=== PATIENT | female | born 1955 | race Caucasian/White ===

== ENCOUNTER → 2018-03-09 | Outpatient (CLI) | payer OTHER ==
[~2018-03-09] MED LIST: ADULT LOW DOSE81 MG PO; AMBIEN 10 MG TA10 MG PO; BACTRIM DS TAB1 EACH PO; BUPROPION HCL150 MG PO; CALCIUM 600 +1 EAC1 PO; CARISOPRODOL 3350 MG PO; CEFTIN 250 MG250 MG PO; CELEBREX 200 M200 MG PO; CIPRO500 MG PO; CLARITIN10 MG PO; CLEOCIN HCL150 MG PO; CUBICIN500 MG IV; CYCLOBENZAPRINE10 MG PO; CYMBALTA60 MG PO; DEPAKOTE 250MG250 M1 PO; DEPAKOTE ER500 MG PO; FISH OIL 1,001000 M2 PO; FISH OIL SOFTG1 EACH PO; GABAPENTIN600 M1 PO; HYDROCODONE-AP1 EAC6 PO; HYDROCODONE-AP1 EACH PO; IBUPROFEN 800800 M1 PO; LEVOTHYROXIN0.088 MG PO; MINOCYCLINE HC100 M2 PO; MIRALAX255 GM PO; MOBIC15 MG PO; MOBIC7.5 MG PO; MUCINEX D TABL1 EAC1 PO; MULTIVITAMINS PO; MUPIROCIN22 GM; OMEPRAZOLE20 M2 PO; ONE DAILY ENER1 EACH PO; ONE DAILY PLUS1 EAC1 PO; OXYBUTYNIN 5 MG5 M2 PO; PERCOCET 10-321 EAC1 PO; POTASSIUM GLUC500 MG PO; PREDNISONE50 MG PO; PRILOSEC 20 MG20 MG PO; SYNTHROID; TRIAMCINOLONE A15 G1; VENTOLIN HFA INH8 GM IH; WELLBUTRIN SR150 MG PO; XANAX 0.5 MG0.5 MG PO; XANAX PO; ZPAK PO; ZYVOX600 MG PO; oxybutynin PO
[2018-03-09 12:38] LABS: ABSOLUTE BASOPHILS 0.1 thou/uL (0.0-0.2); ABSOLUTE EOSINOPHILS 0.3 thou/uL (0.0-0.7); ABSOLUTE MONOCYTES 0.5 thou/uL (0.0-1.2); ABSOLUTE NEUTROPHILS 4.3 thou/uL (1.6-8.1); BASOPHILS 1.4 %; EOSINOPHILS 3.5 %; HEMATOCRIT 40.1 % (37.0-47.0); HEMOGLOBIN 13.5 gm/dL (12.0-15.0); LYMPHOCYTES 27.5 %; MCH 28.3 pg (26.0-34.0); MCHC 33.8 g/dL (28.0-37.0); MCV 83.9 fL (80.0-100.0); MONOCYTES 7.4 %; MPV 8.2 fl. (7.2-11.1); NUCLEATED RBCS 0 /100WBC; PLATELET COUNT* 336 thou/uL (150-400); POLYS 60.2 %; RBC 4.78 mil/uL (4.20-5.00); RDW-CV 14.7 % (10.5-14.5); WBC 7.2 thou/uL (4.0-11.0)
[2018-03-09 12:50] LABS: ALBUMIN 3.7 g/dL (3.4-5.0); ALKALINE PHOSPHATASE 55 U/L (46-116); ANION GAP 5 mmol/L (7-16); BUN 15 mg/dL (7-18); CALCIUM 9.3 mg/dL (8.5-10.1); CHLORIDE 102 mmol/L (98-107); CHOLESTEROL 169 mg/dL (<200); CO2 34 mmol/L (21-32); CREATININE 0.8 mg/dL (0.6-1.3); GLUCOSE 99 mg/dL (70-99); HDL CHOLESTEROL 54 mg/dL (>40); LDL CHOLESTEROL 89 mg/dL (<100); POTASSIUM 4.1 mmol/L (3.5-5.1); SGOT 14 U/L (15-37); SGPT 21 U/L (30-65); SODIUM 141 mmol/L (136-145); TC:HDL 3.1 Ratio (Not establshd); TOTAL BILIRUBIN 0.4 mg/dL (<0.1-1.0); TOTAL PROTEIN 7.1 g/dL (6.4-8.2); TRIGLYCERIDE 130 mg/dL (<150); VLDL 26 mg/dL (<40)
[2018-03-09 12:51] LABS: SERUM ASSESSMENT Clear
== END ==
LOC: M.LAB 12:17
PROVIDERS: Internal Medicine
DX: E03.9 Hypothyroidism, unspecified (principal); Z79.899 Other long term (current) drug therapy

== ENCOUNTER 2018-07-24 15:05 | Emergency (ER) | payer OTHER ==
[~2018-07-24] VITALS: Ht 149.9 cm; Wt 69.8 kg
[2018-07-24] MEDS ORDERED: NORCO 5-325 TA1 EAC1 PO (16:20)
[2018-07-24] MEDS ORDERED: CLEOCIN HCL300 MG PO (16:20)
[2018-07-24] MEDS ORDERED: IBUPROFEN 800800 M1 PO (16:20)
[2018-07-24 17:36] VITALS: BP 135/70
== END 2018-07-24 17:36 | disposition home or self-care (01) ==
LOC: M.ERS 15:05
DX: L02.511 Cutaneous abscess of right hand (principal); L03.011 Cellulitis of right finger; F32.9 Major depressive disorder, single episode, unspecified; M79.7 Fibromyalgia; Z90.89 Acquired absence of other organs; Z88.8 Allergy status to other drugs, medicaments and biological substances; Z91.040 Latex allergy status

== ENCOUNTER → 2019-08-17 | Outpatient (CLI) | payer OTHER ==
[~2019-08-17] MED LIST changes: +CLEOCIN HCL300 MG PO; +NORCO 5-325 TA1 EAC1 PO
== END ==
LOC: M.RAD 13:48
PROVIDERS: ATTEND Internal Medicine
DX: Z12.31 Encounter for screening mammogram for malignant neoplasm of breast (principal)

== ENCOUNTER → 2019-08-24 | Outpatient (CLI) | payer OTHER ==
[2019-08-24 16:17] LABS: ABSOLUTE BASOPHILS 0.1 thou/uL (0.0-0.2); ABSOLUTE EOSINOPHILS 0.2 thou/uL (0.0-0.7); ABSOLUTE LYMPHOCYTES 1.8 thou/uL (0.8-5.3); ABSOLUTE MONOCYTES 0.5 thou/uL (0.0-1.2); ABSOLUTE NEUTROPHILS 4.2 thou/uL (1.6-8.1); BASOPHILS 1.2 %; EOSINOPHILS 2.4 %; HEMATOCRIT 39.7 % (37.0-47.0); HEMOGLOBIN 13.6 gm/dL (12.0-15.0); LYMPHOCYTES 26.7 %; MCH 28.7 pg (26.0-34.0); MCHC 34.3 g/dL (28.0-37.0); MCV 83.7 fL (80.0-100.0); MONOCYTES 7.9 %; MPV 8.3 fl. (7.2-11.1); NUCLEATED RBCS 0 /100WBC; PLATELET COUNT* 326 thou/uL (150-400); POLYS 61.8 %; RBC 4.75 mil/uL (4.20-5.00); WBC 6.8 thou/uL (4.0-11.0)
[2019-08-24 16:36] LABS: ALBUMIN 3.9 g/dL (3.4-5.0); ALKALINE PHOSPHATASE 46 U/L (46-116); ANION GAP 6 mmol/L (7-16); BUN 13 mg/dL (7-18); CALCIUM 8.6 mg/dL (8.5-10.1); CHLORIDE 100 mmol/L (98-107); CHOLESTEROL 166 mg/dL (<200); CO2 32 mmol/L (21-32); CREATININE 0.8 mg/dL (0.6-1.3); GLUCOSE 104 mg/dL (70-99); HDL CHOLESTEROL 59 mg/dL (>40); LDL CHOLESTEROL 91 mg/dL (<100); POTASSIUM 3.9 mmol/L (3.5-5.1); SGOT 16 U/L (15-37); SGPT 20 U/L (30-65); SODIUM 138 mmol/L (136-145); TC:HDL 2.8 Ratio (Not establshd); TOTAL BILIRUBIN 0.4 mg/dL (<0.1-1.0); TOTAL PROTEIN 7.4 g/dL (6.4-8.2); TRIGLYCERIDE 83 mg/dL (<150); VLDL 17 mg/dL (<40)
[2019-08-24 16:38] LABS: SERUM ASSESSMENT Clear
== END ==
LOC: M.LAB 16:04
PROVIDERS: ATTEND Internal Medicine
DX: Z00.00 Encounter for general adult medical examination without abnormal findings (principal); E03.9 Hypothyroidism, unspecified

== ENCOUNTER 2019-10-02 07:02 | Emergency (ER) | payer OTHER ==
[~2019-10-02] VITALS: Ht 149.9 cm; Wt 71.7 kg
[2019-10-02] MEDS ORDERED: NORCO 5-325 TA1 EAC2 PO (07:34)
[2019-10-02] MEDS ORDERED: DOXYCYCLINE 10100 M2 PO (07:34)
[2019-10-02 07:45] VITALS: BP 182/92
== END 2019-10-02 07:45 | disposition home or self-care (01) ==
LOC: M.ERS 07:02
DX: L03.031 Cellulitis of right toe (principal); M79.7 Fibromyalgia; F32.9 Major depressive disorder, single episode, unspecified; Z90.49 Acquired absence of other specified parts of digestive tract; Z86.14 Personal history of Methicillin resistant Staphylococcus aureus infection; Z91.040 Latex allergy status; Z88.8 Allergy status to other drugs, medicaments and biological substances

== ENCOUNTER 2020-01-01 00:28 | Emergency (ER) | payer OTHER ==
[~2020-01-01] VITALS: Ht 165.1 cm; Wt 70.3 kg
[~2020-01-01 00:28] MED LIST changes: +DOXYCYCLINE 10100 M2 PO; +NORCO 5-325 TA1 EAC2 PO
[2020-01-01 01:53] LABS: HEMOGLOBIN 11.7 gm/dL (12.0-15.0)
[2020-01-01 01:55] LABS: HEMATOCRIT 36.1 % (37.0-47.0); MCH 27.4 pg (26.0-34.0); MCHC 32.4 g/dL (28.0-37.0); MCV 84.5 fL (80.0-100.0); MPV 7.9 fl. (7.2-11.1); NUCLEATED RBCS 0 /100WBC; PLATELET COUNT* 497 thou/uL (150-400); RBC 4.27 mil/uL (4.20-5.00); RDW-CV 15.1 % (10.5-14.5); WBC 23.3 thou/uL (4.0-11.0)
[2020-01-01 02:02] LABS: CALCIUM 8.8 mg/dL (8.5-10.1); CREATININE 0.8 mg/dL (0.6-1.3); POTASSIUM 4.4 mmol/L (3.5-5.1)
[2020-01-01 02:06] LABS: ALBUMIN 2.9 g/dL (3.4-5.0); MAGNESIUM 2.9 mg/dL (1.8-2.4); TOTAL BILIRUBIN 0.4 mg/dL (<0.1-1.0)
[2020-01-01 03:22] LABS: ABSOLUTE EOSINOPHILS 0.7 thou/uL (0.0-0.7); ABSOLUTE LYMPHOCYTES 2.1 thou/uL (0.8-5.3); ABSOLUTE MONOCYTES 1.2 thou/uL (0.0-1.2); ABSOLUTE NEUTROPHILS 19.3 thou/uL (1.6-8.1); PLATELET ESTIMATE INCREASED
[2020-01-01 03:23] LABS: TOXIC GRANULATION 1+
[2020-01-01 03:27] LABS: URINE BILIRUBIN NEGATIVE (Negative); URINE BLOOD TRACE (Negative); URINE CLARITY CLEAR; URINE COLOR YELLOW; URINE GLUCOSE-RANDOM NEGATIVE (Negative); URINE KETONES NEGATIVE (Negative); URINE LEUKOCYTES-REFLEX 1+ (Negative); URINE NITRITE-REFLEX NEGATIVE (Negative); URINE PROTEIN NEGATIVE (Negative); URINE UROBILINOGEN 0.2 E.U./dl (0.2-1.0)
[2020-01-01 04:27] LABS: HYALINE CASTS 4-10 Moderate /LPF (None Seen); SQUAMOUS 4-10 Moderate /LPF (0-3); URINE RBC 0-2 Rare /HPF (0-2); URINE WBC-REFLEX 6-15 Few /HPF (0-5)
[2020-01-01 04:28] LABS: BACTERIA-REFLEX 1-9 Few /HPF (None Seen); CRYSTALS None Seen /LPF (None Seen)
[2020-01-01 08:25] VITALS: BP 137/68
== END 2020-01-01 08:20 | disposition still patient (30) ==
LOC: M.ERS 00:28
PROVIDERS: Emergency Medicine
DX: N39.0 Urinary tract infection, site not specified (principal); Z20.828 Contact with and (suspected) exposure to other viral communicable diseases; R19.09 Other intra-abdominal and pelvic swelling, mass and lump; M79.7 Fibromyalgia; Z79.899 Other long term (current) drug therapy; Z88.8 Allergy status to other drugs, medicaments and biological substances; Z91.040 Latex allergy status; Z90.89 Acquired absence of other organs

== ENCOUNTER 2020-01-19 12:53 | Inpatient (IN) | payer OTHER ==
[~2020-01-19] VITALS: Ht 152.4 cm; Wt 75.7 kg
[2020-01-19] MEDS ORDERED: HYDROCODON-ACE1 EAC7 PO (14:25)
[2020-01-19] MEDS ORDERED: LIDODERM1 EACH TOP (14:32)
[2020-01-19] MEDS ORDERED: ELIQUIS5 MG PO (14:33)
[2020-01-19] MEDS ORDERED: COLACE100 MG PO (14:34)
[2020-01-19 19:00] VITALS: BP 158/84
[2020-01-20 04:33] LABS: HEMATOCRIT 26.8 % (37.0-47.0); HEMOGLOBIN 8.9 gm/dL (12.0-15.0); MCH 27.3 pg (26.0-34.0); MCHC 33.1 g/dL (28.0-37.0); MCV 82.4 fL (80.0-100.0); RBC 3.25 mil/uL (4.20-5.00); RDW-CV 14.3 % (10.5-14.5); WBC 8.6 thou/uL (4.0-11.0)
[2020-01-20 05:06] LABS: CREATININE 0.7 mg/dL (0.6-1.3); POTASSIUM 3.2 mmol/L (3.5-5.1)
[2020-01-20 07:30] VITALS: BP 137/70
[2020-01-20 20:00] VITALS: BP 144/70
[2020-01-21 08:00] VITALS: BP 123/62
[2020-01-21 10:16] LABS: ABSOLUTE EOSINOPHILS 0.2 thou/uL (0.0-0.7); ABSOLUTE LYMPHOCYTES 1.4 thou/uL (0.8-5.3); ABSOLUTE MONOCYTES 0.9 thou/uL (0.0-1.2); ABSOLUTE NEUTROPHILS 4.9 thou/uL (1.6-8.1); BASOPHILS 0.5 %; EOSINOPHILS 3.1 %; HEMOGLOBIN 9.2 gm/dL (12.0-15.0); LYMPHOCYTES 18.2 %; MCH 26.9 pg (26.0-34.0); MCHC 32.6 g/dL (28.0-37.0); MCV 82.5 fL (80.0-100.0); MONOCYTES 12.6 %; NUCLEATED RBCS 0 /100WBC; PLATELET COUNT* 622 thou/uL (150-400); POLYS 65.6 %; RDW-CV 14.7 % (10.5-14.5); WBC 7.5 thou/uL (4.0-11.0)
[2020-01-21 10:21] LABS: CALCIUM 8.6 mg/dL (8.5-10.1); CREATININE 0.8 mg/dL (0.6-1.3)
[2020-01-21 10:24] LABS: POTASSIUM 2.9 mmol/L (3.5-5.1)
[2020-01-21 14:30] VITALS: BP 123/62
[2020-01-21 20:26] VITALS: BP 162/79
[2020-01-22 07:30] VITALS: BP 156/77
[2020-01-22 21:32] VITALS: BP 155/75
[2020-01-23 08:00] VITALS: BP 133/65
[2020-01-23 20:17] VITALS: BP 129/71
[2020-01-24 08:00] VITALS: BP 138/67
[2020-01-24 19:00] VITALS: BP 134/64
[2020-01-25 07:30] VITALS: BP 123/64
[2020-01-25 19:00] VITALS: BP 145/70
[2020-01-26 04:30] LABS: HEMATOCRIT 26.9 % (37.0-47.0); MCH 27.4 pg (26.0-34.0); MCHC 33.4 g/dL (28.0-37.0); MCV 82.1 fL (80.0-100.0); MPV 7.2 fl. (7.2-11.1); RBC 3.28 mil/uL (4.20-5.00); RDW-CV 15.2 % (10.5-14.5); WBC 8.8 thou/uL (4.0-11.0)
[2020-01-26 04:47] LABS: CALCIUM 8.3 mg/dL (8.5-10.1); CREATININE 0.7 mg/dL (0.6-1.3); POTASSIUM 3.5 mmol/L (3.5-5.1)
[2020-01-26 08:00] VITALS: BP 126/59
[2020-01-26 20:00] VITALS: BP 137/67
[2020-01-27 08:00] VITALS: BP 116/45
[2020-01-27 20:00] VITALS: BP 132/57
[2020-01-28 08:00] VITALS: BP 144/67
[2020-01-28] MEDS ORDERED: NEXIUM40 MG PO (08:23)
[2020-01-28] MEDS ORDERED: LIDODERM1 EACH TOP (08:28)
[2020-01-28 20:00] VITALS: BP 138/63
[2020-01-29 08:00] VITALS: BP 143/70
[2020-01-29 12:40] VITALS: BP 143/70
[2020-01-29] MEDS ORDERED: HYDROCODON-ACE1 EAC7 PO (14:53)
== END 2020-01-29 16:10 | disposition home health service (06) | DRG 948 ==
LOC: M.REH 12:53
PROVIDERS: Family Medicine; ADMIT Physical Medicine & Rehabilitation; ATTEND Physical Medicine & Rehabilitation
DX: R53.81 Other malaise (principal); F32.9 Major depressive disorder, single episode, unspecified; F41.9 Anxiety disorder, unspecified; E87.6 Hypokalemia; K21.9 Gastro-esophageal reflux disease without esophagitis; E03.9 Hypothyroidism, unspecified; R19.00 Intra-abdominal and pelvic swelling, mass and lump, unspecified site; Z90.722 Acquired absence of ovaries, bilateral; Z88.8 Allergy status to other drugs, medicaments and biological substances; Z91.040 Latex allergy status; Z86.14 Personal history of Methicillin resistant Staphylococcus aureus infection; Z82.49 Family history of ischemic heart disease and other diseases of the circulatory system; Z87.891 Personal history of nicotine dependence

== ENCOUNTER 2020-07-27 07:34 | Emergency (ER) | payer OTHER ==
[~2020-07-27] VITALS: Ht 152.4 cm; Wt 65.3 kg
[~2020-07-27 07:34] MED LIST changes: +COLACE100 MG PO; +ELIQUIS5 MG PO; +HYDROCODON-ACE1 EAC7 PO; +LIDODERM1 EACH TOP; +NEXIUM40 MG PO
[2020-07-27 08:12] LABS: ABSOLUTE BASOPHILS 0.1 thou/uL (0.0-0.2); ABSOLUTE EOSINOPHILS 0.3 thou/uL (0.0-0.7); ABSOLUTE LYMPHOCYTES 3.8 thou/uL (0.8-5.3); ABSOLUTE MONOCYTES 0.8 thou/uL (0.0-1.2); ABSOLUTE NEUTROPHILS 5.9 thou/uL (1.6-8.1); BASOPHILS 0.8 %; EOSINOPHILS 2.9 %; HEMATOCRIT 40.5 % (37.0-47.0); HEMOGLOBIN 13.6 gm/dL (12.0-15.0); LYMPHOCYTES 34.8 %; MCH 28.3 pg (26.0-34.0); MCHC 33.5 g/dL (28.0-37.0); MCV 84.4 fL (80.0-100.0); MONOCYTES 7.6 %; MPV 7.9 fl. (7.2-11.1); NUCLEATED RBCS 0 /100WBC; PLATELET COUNT* 394 thou/uL (150-400); POLYS 53.9 %; RDW-CV 15.1 % (10.5-14.5); WBC 10.9 thou/uL (4.0-11.0)
[2020-07-27 08:21] LABS: URINE BILIRUBIN NEGATIVE (Negative); URINE BLOOD NEGATIVE (Negative); URINE CLARITY CLEAR; URINE COLOR YELLOW; URINE GLUCOSE-RANDOM NEGATIVE (Negative); URINE KETONES NEGATIVE (Negative); URINE NITRITE-REFLEX NEGATIVE (Negative); URINE PROTEIN NEGATIVE (Negative); URINE UROBILINOGEN 0.2 E.U./dl (0.2-1.0)
[2020-07-27 08:22] LABS: URINE LEUKOCYTES-REFLEX 2+ (Negative)
[2020-07-27 08:26] LABS: BACTERIA-REFLEX 1-9 Few /HPF (None Seen); CASTS None Seen /LPF (None Seen); CRYSTALS None Seen /LPF (None Seen); MUCUS None Seen strn/LPF (None Seen); SQUAMOUS 4-10 Moderate /LPF (0-3); URINE RBC 0-2 Rare /HPF (0-2); URINE WBC-REFLEX 6-15 Few /HPF (0-5)
[2020-07-27 08:36] LABS: CALCIUM 9.2 mg/dL (8.5-10.1); CREATININE 0.9 mg/dL (0.6-1.3); POTASSIUM 3.6 mmol/L (3.5-5.1)
[2020-07-27 08:41] LABS: ALBUMIN 4.4 g/dL (3.4-5.0); TOTAL BILIRUBIN 0.2 mg/dL (<0.1-1.0); TOTAL PROTEIN 8.3 g/dL (6.4-8.2)
[2020-07-27] MEDS ORDERED: CEPHALEXIN500 MG PO (09:56)
[2020-07-27] MEDS ORDERED: ZOFRAN ODT4 MG DISSOLVE (09:56)
[2020-07-27] MEDS ORDERED: BENTYL 10 MG CA10 M1 PO (09:56)
[2020-07-27 10:15] VITALS: BP 156/82
--- NOTE | 2020-07-27 11:53 | EKG ---
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1955 Requested By: Horacio Whiteside Order Number: [id number] MD: Donta Kiser Measurements Intervals [place] Rate: 75 P: -10 AR: 140 QRS: 40 QRSD: 93 T: 29 QT: 406 QTc: 454 Interpretive Statements Sinus rhythm Compared to ECG 11/28/2014 10:52:27 ST (T wave) deviation no longer present Possible ischemia no longer present Electronically Signed On 07-27-2020 11:53:30 CDT by Donta Kiser [email or web address] <ELECTRONICALLY SIGNED> By: Donta Kiser MD, FACC 07/27/20 1153 0801 0801 Donta Kiser MD, [facility] /EPI
== END 2020-07-27 10:15 | disposition home or self-care (01) ==
LOC: M.ERS 07:34
PROVIDERS: Emergency Medicine Emergency Medical Services
DX: N39.0 Urinary tract infection, site not specified (principal); E11.9 Type 2 diabetes mellitus without complications; M79.7 Fibromyalgia; K21.9 Gastro-esophageal reflux disease without esophagitis; E03.9 Hypothyroidism, unspecified; Z86.14 Personal history of Methicillin resistant Staphylococcus aureus infection; Z91.040 Latex allergy status; Z88.8 Allergy status to other drugs, medicaments and biological substances

== ENCOUNTER → 2020-08-04 | Outpatient (CLI) | payer OTHER ==
[~2020-08-04] MED LIST changes: +BENTYL 10 MG CA10 M1 PO; +CEPHALEXIN500 MG PO; +ZOFRAN ODT4 MG DISSOLVE
[2020-08-04 10:55] LABS: URINE BILIRUBIN NEGATIVE (Negative); URINE BLOOD NEGATIVE (Negative); URINE CLARITY CLEAR; URINE COLOR YELLOW; URINE GLUCOSE-RANDOM NEGATIVE (Negative); URINE KETONES NEGATIVE (Negative); URINE LEUKOCYTES-REFLEX NEGATIVE (Negative); URINE NITRITE-REFLEX NEGATIVE (Negative); URINE PROTEIN NEGATIVE (Negative); URINE SPECIFIC GRAVITY 1.025 (1.005-1.030); URINE UROBILINOGEN 0.2 E.U./dl (0.2-1.0)
== END ==
LOC: M.LAB 10:24
PROVIDERS: ATTEND Internal Medicine
DX: N30.00 Acute cystitis without hematuria (principal)

== ENCOUNTER 2020-08-08 13:54 | Emergency (ER) | payer OTHER ==
[~2020-08-08] VITALS: Ht 152.4 cm; Wt 67.1 kg
[2020-08-08 14:28] LABS: ABSOLUTE BASOPHILS 0.1 thou/uL (0.0-0.2); ABSOLUTE EOSINOPHILS 0.2 thou/uL (0.0-0.7); ABSOLUTE LYMPHOCYTES 2.3 thou/uL (0.8-5.3); ABSOLUTE MONOCYTES 0.8 thou/uL (0.0-1.2); ABSOLUTE NEUTROPHILS 5.6 thou/uL (1.6-8.1); EOSINOPHILS 2.5 %; HEMATOCRIT 41.1 % (37.0-47.0); HEMOGLOBIN 13.6 gm/dL (12.0-15.0); LYMPHOCYTES 25.6 %; MCHC 33.2 g/dL (28.0-37.0); MCV 84.5 fL (80.0-100.0); MONOCYTES 9.2 %; MPV 7.7 fl. (7.2-11.1); NUCLEATED RBCS 0 /100WBC; PLATELET COUNT* 449 thou/uL (150-400); POLYS 61.7 %; RBC 4.86 mil/uL (4.20-5.00); RDW-CV 14.5 % (10.5-14.5); WBC 9.1 thou/uL (4.0-11.0)
[2020-08-08 14:32] LABS: URINE BILIRUBIN NEGATIVE (Negative); URINE BLOOD NEGATIVE (Negative); URINE CLARITY CLEAR; URINE COLOR YELLOW; URINE GLUCOSE-RANDOM NEGATIVE (Negative); URINE KETONES NEGATIVE (Negative); URINE NITRITE-REFLEX NEGATIVE (Negative); URINE PROTEIN TRACE (Negative); URINE SPECIFIC GRAVITY 1.015 (1.005-1.030); URINE UROBILINOGEN 0.2 E.U./dl (0.2-1.0)
[2020-08-08 14:37] LABS: CALCIUM 9.4 mg/dL (8.5-10.1); CREATININE 1.1 mg/dL (0.6-1.3); POTASSIUM 3.8 mmol/L (3.5-5.1)
[2020-08-08 14:37] LABS: CASTS None Seen /LPF (None Seen); CRYSTALS None Seen /LPF (None Seen); SQUAMOUS 0-3 Few /LPF (0-3); URINE LEUKOCYTES-REFLEX 2+ (Negative); URINE RBC 0-2 Rare /HPF (0-2); URINE WBC-REFLEX 0-5 Rare /HPF (0-5)
[2020-08-08 14:41] LABS: ALBUMIN 4.5 g/dL (3.4-5.0); TOTAL BILIRUBIN 0.4 mg/dL (<0.1-1.0); TOTAL PROTEIN 8.5 g/dL (6.4-8.2)
[2020-08-08 16:52] VITALS: BP 156/87
--- NOTE | 2020-08-09 09:28 | EKG ---
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
== END 2020-08-08 16:52 | disposition home or self-care (01) ==
LOC: M.ERS 13:54
PROVIDERS: Family Medicine
DX: K59.00 Constipation, unspecified (principal); E11.9 Type 2 diabetes mellitus without complications; M79.7 Fibromyalgia; K21.9 Gastro-esophageal reflux disease without esophagitis; E03.9 Hypothyroidism, unspecified; Z91.040 Latex allergy status; Z88.8 Allergy status to other drugs, medicaments and biological substances; Z86.14 Personal history of Methicillin resistant Staphylococcus aureus infection; Z79.899 Other long term (current) drug therapy

== ENCOUNTER 2020-10-31 22:32 | Emergency (ER) | payer OTHER ==
[~2020-10-31] VITALS: Ht 152.4 cm; Wt 65.3 kg
[2020-10-31] MEDS ORDERED: MELOXICAM15 MG PO (23:35)
[2020-10-31] MEDS ORDERED: ACETAMINOPHEN-1 EAC2 PO (23:35)
[2020-11-01] VITALS: BP 153/76
== END 2020-11-01 | disposition home or self-care (01) ==
LOC: M.ERS 22:32
DX: S42.301A Unspecified fracture of shaft of humerus, right arm, initial encounter for closed fracture (principal); E11.9 Type 2 diabetes mellitus without complications; F41.9 Anxiety disorder, unspecified; F32.9 Major depressive disorder, single episode, unspecified; K21.9 Gastro-esophageal reflux disease without esophagitis; E03.9 Hypothyroidism, unspecified; Z79.899 Other long term (current) drug therapy; Z91.040 Latex allergy status; Z88.9 Allergy status to unspecified drugs, medicaments and biological substances; Z88.8 Allergy status to other drugs, medicaments and biological substances; W19.XXXA Unspecified fall, initial encounter; Y93.89 Activity, other specified; Y92.89 Other specified places as the place of occurrence of the external cause; Y99.8 Other external cause status